=== PATIENT | female | born 1960 | race Asian ===

== ENCOUNTER 2024-08-09 08:04 | Outpatient (REF) | payer SELFPAY ==
--- OUTSIDE RECORDS SUMMARY | 2024-08-09 08:17 | XMS_ITS ---
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 Assessments Encounter Date Diagnosis (ICD Code) Assessment Notes Treatment Notes Treatment Clinical Notes Section Notes 06/27/2024 Neoplasm of uncertain behavior of appendix (ICD-10 - 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.3) Plan Of Treatment Pending Test Test Name Order Date CREATININE WITH GFRE 06/27/2024 BUN 06/27/2024 Next Appt Details Provider Name:Niharika Fofana, 0 08/29/2024 01:45:00 PM, [address] [place] [address], [phone], Provider Name:Reina Milton, 0 11/28/2024 09:30:00 AM, [address] [place] [address], [phone], Provider Name:Kathy Friedman, 11:00:00 AM, [address] [place] [address], [phone], Provider Name:Niharika Fofana, 1 04/16/2024 10:45:00 AM, [address] [place] [address], [id number], Progress Notes * DORY LAGUNADOB:1960 (64 yo F)Acc No.[id number]:06/27/2024 Patient:?DORY LAGUNA :1960???Age:63 Y???Sex:Female Address:[address] [place] [address] [address], [place], [address] Subjective: * Chief Complaints: * ???Need Labs * Medical History:? * Surgical History:? * Hospitalization/Major Diagno stic Procedure:? * Medications:? Objective: * Vitals:? * Physical Examination:? * ? Assessment: * Assessment: 1.?Neoplasm of uncertain beh avior of appendix - D37.3 (Primary)??? Plan: * Treatment: * Procedure Codes:? * * Date:?
--- OUTSIDE RECORDS SUMMARY | 2024-08-09 08:18 | XMS_ITS ---
Author Organization Q [facility] Address [address] [place], [place] [phone] Care Team Providers Care Racecourse Barrier Attendant Name Role Phone Niharika Fofana Primary Care Provider REASON FOR VISIT Telehealth visit 06/02/2024 Social History Sex Assigned At : Social History Observation Description Sex Assigned At Female Encounters Encounter Location Date Provider Diagnosis W [address] [phone] 06/02/2024 Niharika Fofana Plan Of Treatment Next Appt Details Provider Name:Niharika Fofana, 0 08/29/2024 01:45:00 PM, [address] [place] [address], [phone], Provider Name:Reina Milton, 0 11/28/2024 09:30:00 AM, [address] [place] [address], [phone], Provider Name:Kathy Friedman, 11:00:00 AM, [address] [place] [address], [phone], Provider Name:Niharika Fofana, 1 04/16/2024 10:45:00 AM, [address] [place] [address], [phone], Progress Notes * DORY LAGUNADOB:1960 (63 yo F)Acc No.[id number]:06/02/2024 Patient:?DORY LAGUNA :1960???Age:63 Y???Sex:Female Address:[address] [place] [address] [address], [place], [address] * true * Date:? Generated for Bernarda rg/Zulma/Chloéitting on:?08/09/2024 08:17 AM EDT
--- OUTSIDE RECORDS SUMMARY | 2024-08-09 08:18 | XMS_ITS ---
Author Organization Q [facility] Address [address] [place], [place] [id number] Care Team Providers Care Staff Nurse Name Role Phone Brigido Niharika Irene Primary Care Provider [phone] REASON FOR VISIT PHQ9 Depression Screening Social History Sex Assigned At : Social History Observation Description Sex Assigned At Female Encounters Encounter Location Date Provider Diagnosis [address] [phone] 07/04/2024 Niharika Fofana Plan Of Treatment Next Appt Details Provider Name:Niharika Fofana, 0 08/29/2024 01:45:00 PM, [address] [place] [address], [phone], Provider Name:Reina Milton, 0 11/28/2024 09:30:00 AM, [address] [place] [address], [phone], Provider Name:Kathy Friedman, 11:00:00 AM, [address] [place] [address], [phone], Provider Name:Niharika Fofana, 1 04/16/2024 10:45:00 AM, [address] [place] [address], [phone], Progress Notes * DORY LAGUNADOB:1960 (64 yo F)Acc No.[id number]:07/04/2024 Patient:?DORY LAGUNA :1960???Age:63 Y???Sex:Female Address:[address] [place] [address] [address], [place], [address] * * Date:? History and Physical Notes * HPI (History of Present Illness) Category Sub-Category Detail Notes Category Not es Depression Screening PHQ-9 Little inte rest or pleasure in doing things: Not at all, Feeling down,depressed or hopeless: Not at all, Trouble falling or staying asleep, or sleeping too much: Not at all, Feeling tired or having little energy: Not at all, Poor appetite or overeating: Not at all, Feeling bad about yourself or that you are a failure or have let yourself or your family down: Not at all, Trouble concentrating on things, such as reading the newspaper or watching television: Not at all, Moving or speaking so slowly that other people could have notice. Or the opposite of being so fidgety or restless that you have been moving around a lost more that usual: Not at all, Thoughts that you would be better off , or of hurting yourself in some way: Not at all, Total Score: 0
--- OUTSIDE RECORDS SUMMARY | 2024-08-09 08:18 | XMS_ITS | Patient Health Record ---
Author Organization Q [facility] [place], [facility] Address [address] [place] [phone] Care Team Providers Care Crop Or Grain Farmer Name Role Phone Niharika Fofana Primary Care Provider Kathy Friedman Unavailable [phone] Dr Reina Milton Unavailable [phone] Allergies No Known Allergies Results Component Value Reference Range Notes CBC Reviewed date:06/04/2024 02:36:59 PM Interpretation:see [facility] Performing Lab: Notes/Report: Copied To: , Ordering Provider: [place] [address] [facility] WBC 13.82 4.00-10.00 K/uL RBC 4.75 3.90-5.20 M/uL HEMOGLOBIN 14.9 11.2-15.7 g/dL HEMATOCRIT 42.8 34.0-45.0 % MCV 90 82-98 fL MCH 31.4 26.0-32.0 pg MCHC 34.8 32.0-37.0 g/dL RDW 11.8 10.5-15.5 % RDW-SD 38.7 35.1-46.3 fL PLATELET COUNT 257 150-400 K/uL NUCLEATED RBC 0 <=0 #/100 WBC Return To Vendor: AVELINO DUGAN Note See Below For Report LIPID PANEL Reviewed date:06/04/2024 02:36:59 PM Interpretation:. Performing Lab: Notes/Report: Copied To: , Ordering Provider: [place] [address] [facility] CHOLESTEROL 265 0-199 mg/dL TRIGLYCERIDES 176 0-149 mg/dL HDL CHOLESTEROL 64 41-999 mg/dL LDL CHOLESTEROL 166 0-129 mg/dL NON-HDL CHOLESTEROL 201 <190 mg/dL RATIO CHOL/HDL 4.1 2.0-5.0 Return To Vendor: AVELINO DUGAN Note See Below For Report TSH Reviewed date:06/04/2024 02:36:59 PM Interpretation: Performing Lab: Notes/Report: Copied To: , Ordering Provider: [place] [address] [address] [facility] TSH 0.98 0.27-4.20 uIU/mL Lab Directo r: AVELINO DUGAN Note See Below For Report VITAMIN D,25OH Reviewed date:06/04/2024 02:36:59 PM Interpretation: Performing Lab: Notes/Report: [facility] [address] [place] [address] Ordering Provider: VAN FOFANA Copied To: , VITAMIN D, 25-OH 44 30-60 ng/mL Lab Directo r: AVELINO DUGAN Note See Below For Report COMPREHENSIVE METABOLIC PANE L Reviewed date:06/04/2024 02:36:59 PM Interpretation:see [facility] Performing Lab: Notes/Report: Copied To: , Ordering Provider: [place] [address] [address] [facility] SODIUM 145 135-147 mmol/L POTASSIUM 3.7 3.5-5.4 mmol/L CHLORIDE 103 96-108 mmol/L TOTAL CO2 25 22-32 mmol/L ANION GAP (CALC) 17 10-18 mmol/L BUN 12 6-20 mg/dL CREATININE 0.60 0.40-1.10 mg/dL GLUCOSE 93 70-100 mg/dL CALCIUM 9.2 8.4-10.3 mg/dL TOTAL PROTEIN 7.7 6.4-8.3 g/dL ALBUMIN, BLOOD 4.7 3.5-5.2 g/dL GLOBULIN 3.0 2.0-4.0 g/dL AST (SGOT) 60 0-40 U/L ALT (SGPT) 93 0-40 U/L ALK PHOSPHATASE 81 35-105 U/L TOTAL BILIRUBIN 0.7 0.0-1.5 mg/dL ESTIMATED GFR (CKD-EPI) 100 Return To Vendor: AVELINO DUGAN Note See Below For Report CALCIUM Reviewed date:06/04/2024 02:36:43 PM Interpretation: Performing Lab: Notes/Report: [facility] [address] [place] [address] Ordering Provider: VAN FOFANA Copied To: , CALCIUM 9.2 8.4-10.3 mg/dL Return To Vendor: AVELINO DUGAN Note See Below For Report HEMOGLOBIN A1C Reviewed date:06/04/2024 02:36:59 PM Interpretation: Performing Lab: Notes/Report: Copied To: , Ordering Provider: VAN FOFANA [address] [facility] HEMOGLOBIN A1C 5.7 4.8-5.9 % A1C between 5 .7-6.4 if confirmed is considered prediabetes, and A1C >= 6.5 if confirmed is considered diabetes, according to the ADA. A1C treatment goals should be individualized. ESTIMATED AVERAGE GLUCOSE Es timated average glucose is calculated from A1C using ADAG equation. ESTIMATED AVERAGE GLUCOSE (INSTR. CALC) 117 68-126 mg/dL Return To Vendor: AVELINO DUGAN Note See Below For Report URINALYSIS, COMPLETE w/MICRO SCOPIC - URed2 Reviewed date:06/04/2024 02:36:59 PM Interpretation: Performing Lab: Notes/Report: ALBUMIN Reviewed date:06/04/2024 02:36:59 PM Interpretation: Performing Lab: Notes/Report: [facility] [address] [place] [address] Ordering Provider: VAN FOFANA Copied To: , ALBUMIN, BLOOD 4.7 3.5-5.2 g/dL Return To Vendor: AVELINO DUGAN Note See Below For Report URINALYSIS WITH SEDIMENT Reviewed date:06/04/2024 02:36:59 PM Interpretation:. Performing Lab: Notes/Report: [facility] [address] [place] [address] Ordering Provider: VAN FOAFNA Copied To: , COLOR, URINE Yellow Yellow, Colorles s, Straw CLARITY, URINE Cloudy Clear PH, URINE 6.0 5.0-8.0 PROTEIN UR 30 mg/dL Negative GLUCOSE UR 500 mg/dL Negative KETONE, UR Negative Negative BILIRUBIN UR Negative Negative UROBILINOGEN UR Normal 0.2-1.0 mg/dL BLOOD UR Negative Negative LEUKOCYTE UR Negative Negative NITRITE UR Negative Negative SPECIFIC GRAVITY UR 1.022 1.001-1.050 WBC, UR (NUMERIC) 0 0-5 /hpf RBC, UR (NUMERIC) 0 0-2 /hpf Lab Direct or: AVELINO DUGAN Note See Below For Report RAINBOW TUBE REQ Reviewed date:06/04/2024 02:36:59 PM Interpretation: Performing Lab: Notes/Report: Copied To: , Ordering Provider: [place] [address] [address] 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 Phone#: [phone]., Steph Rg 06/02/2024 02:44:03 PM >Per [facility], they would need to receive patient's records before schduling any appts. Once they receive the records, they will call patient directly to schedule this appt. Patient and her daughter will aware of the call from [facility]. Also provide the phone # to them in case they miss the calls. Referral Priority Urgent Medications Medication SIG (Take, Route, Frequency, Duration) Notes Start Date End Date Status AmLODIPine Besylate 2.5 mg 1 tab(s) orally once a day 05/08/2022 Active alendronate 70 mg 1 tab(s) orally once a week 11/20/2022 Active Patient report taking herbal medical Not-Taking meclizine 12.5 mg 1 tab(s) orally 1 hour before car ride 12/23/2021 Not-Taking Citracal Maximum + D 315 mg-6.25 mcg 1 tab orally 2 times a day 11/20/2022 Active Vitamin D3 25 mcg 1 cap(s) orally once a day 01/07/2022 Active Calcium from diet 1200mg from food daily 01/07/2022 Not-Taking Immunizations Vaccine Route Administration Date Status Comme nts Flucelvax Quad (Prsv Free) -P IM Intramuscular 12/23/2021 Administered Fluzone High-Dose, IIV3, pf Unknown 01/23/2024 Administered Covid19 Mrdn BIV 18+ (12+) Unknown 02/15/2022 Administe red Covid19 Moderna Booster Unknown 12/05/2021 Administered Hep A Unknown 12/23/2021 Administered Hep B Adult Unknown 12/23/2021 Administered MMR Unknown 07/18/2021 Administered PCV20 ([id number]) -P Unknown 02/15/2022 Administered PPD placed Unknown 05/08/2022 Administered Shingrix (NOT [facility]) Unknown 04/20/2022 Administered Sinovac Unknown 10/21/2020 Administered Sinovac Unknown 05/01/2021 Administered Sinovac Unknown 09/25/2021 Administered TdaP-P IM Intramuscular 04/24/2022 Administered Social History Tobacco Use: Social History Observation Description Date Details (start date - stop date) Never Smoker NA - NA Sex Assigned At : Social History Observation Description Sex Assigned At Female Tobacco use: Question Answer Notes do you smoke: nonsmoker Section Notes: 3[place]20[place] 3[place] 3[place] 3[place] 3[place]01/20[place] 3[place]/20[place] 3[place]/20[place] 3[place]/20[place] 3[place]01/20[place]01/20[place] 12[place]01/20[place] 12/01/2021 3[place]/01/20[place] 12/01/20[place]/01/20[place]/01/20[place] 12/01/2021 Problems Problem Type SNOMED Code ICD Code Onset Dates Problem Status W/U Status Risk Notes Problem Helicobacter pylori (44984486) Helicobacter pylori [H. 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) Active confirmed Problem Leukocytosis (078295661) Elevated white blood cell count, unspecified (D72.829) Active confirmed Problem Vitamin D deficiency (67386843) Vitamin D deficiency, unspecified (E55.9) Active confirmed Problem Hyperlipidemia (68066467) Hyperlipidemia , unspecified (E78.5) Active confirmed Problem Bilateral age-related cataract (6577051964692549 3) Combined forms of age-related cataract, bilateral (H25.813) Active confirmed Problem Presbyopia (29489565) Presbyopia (H52.4) Active confirmed Problem Essential hypertension (67198792) Essential (primary) hypertension (I10) Active confirmed Problem Atrophic Gastritis (Disorder) (01692303) 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1 73 -0.9 86 Osteopenia Left Hip / Femoral Neck 11/11/22 0.594 -2.3 70 -0.8 87 Osteopenia Problem Disorder of bone (78308593) Disorder of bone, unspecified (M89.9) Active confirmed Problem Menopause (843305872) Menopausal and female climacteric states (N95.1) Active confirmed Problem Elevated blood pressure reading without diagnosis of hypertension (379833782) Elevated blood-pressure reading, without diagnosis of hypertension (R03.0) Active confirmed Problem Right lower quadrant pain (748265573) Right lower quadrant pain (R10.31) Active confirmed Problem Frequency of micturition (233302125) Frequency of micturition (R35.0) Active confirmed Problem Solitary pulmonary nodule (189017485) Solitary pulmonary nodule (R91.1) Active confirmed Problem Motion sickness (31469669) Motion sickness, initial encounter (T75.3XXA) Active confirmed Problem Tuberculosis screening (502309890) Encounter for screening for respiratory tuberculosis (Z11.1) Active confirmed Problem Vaccination given (266575685) Encounter for immunization (Z23) Active confirmed Problem Repeated prescription (915678724) Encounter for issue of repeat prescription (Z76.0) Active confirmed Problem Elevation of levels of liver transaminase levels (R74.01) Active confirmed Vital Signs Heart Rate 65 /min 06/01/2024 Pt has not take n the anti-HTN medicine this morning. Temperature 97.3 degrees Fahrenheit 06/01/2024 Pt h as not taken the anti-HTN medicine this morning. Oximetry 98 06/01/2024 Pt has not take n the anti-HTN medicine this morning. Blood pressure diastolic 82 mm Hg 06/01/2024 Pt has not taken the anti-HTN medicine this morning. Height 61.81 in 06/01/2024 Pt has not take n the anti-HTN medicine this morning. Blood pressure systolic 133 mm Hg 06/01/2024 Pt h as not taken the anti-HTN medicine this morning. Weight 124.0 lbs 06/01/2024 Pt has not take n the anti-HTN medicine this morning. BMI 22.82 kg/m2 06/01/2024 Pt has not take n the anti-HTN medicine this morning. Encounters Encounter Location Date Provider Diagnosis [address] [id number] 01/21/2024 Niharika Fofana [address] [id number] 01/21/2024 Niharika Fofana [address] [id number] 01/21/2024 Niharika Fofana Age-related osteoporosis without current pathological fracture M81.0 ; Vitamin D deficiency, unspecified E55.9 and Essential (primary) hypertension I10 [address] [id number] 05/02/2024 Niharika Fofana [address] [id number] 06/01/2024 Niharika Fofana [address] [id number] 06/01/2024 Niharika Fofana [address] [id number] 06/01/2024 Niharika Fofana [address] [id number] 06/01/2024 Niharika Fofana [address] [id number] 06/01/2024 Niharika Fofana [address] [id number] 06/02/2024 Niharika Fofana [address] [id number] 06/02/2024 Niharika Fofana [address] [id number] 06/27/2024 Niharika Fofana Neoplasm of uncertai n behavior of appendix D37.[address] [id number] 07/04/2024 Niharika Fofana [address] [id number] 01/19/2024 Niharika Fofana Age-related osteoporosis without current pathological fracture M81.[address] [id number] 01/24/2024 Niharika Fofana [address] [id number] 06/01/2024 Niharika Fofana Encounter for genera l adult medical examination with abnormal findings Z00.01 ; Dietary counseling and surveillance Z71.3 ; Neoplasm of uncertain behavior of appendix D37.3 ; Age-related osteoporosis without current pathological fracture M81.0 ; Hyperlipidemia, unspecified E78.5 ; Vitamin D deficiency, unspecified E55.9 ; Essential (primary) hypertension I10 ; Encounter for immunization Z23 ; Encounter for issue of repeat prescription Z76.0 and Right lower quadrant pain R10.[address] [id number] 01/21/2024 Niharika Fofana Age-related osteoporosis without current pathological fracture M81.0 ; Hyperlipidemia, unspecified E78.5 ; Essential (primary) hypertension I10 ; Vitamin D deficiency, unspecified E55.9 ; Encounter for issue of repeat prescription Z76.0 and Encounter for immunization Z23 W [address] [id number] 06/02/2024 Niharika Fofana Right lower quadrant pain R10.31 ; Elevation of levels of liver transaminase levels R74.01 ; Elevated white blood cell count, unspecified D72.829 and Hyperlipidemia, unspecified E78.5 Assessments Encounter Date Diagnosis (ICD Code) Assessment Notes Treatment Notes Treatment Clinical Notes Section Notes 01/19/2024 Age-related osteoporosis without current pathological fracture (ICD-10 - M81.0) 01/21/2024 Age-related osteoporosis without current pathological fracture (ICD-10 - M81.0) [facility] BMD 11/11/2022 T-score MA Z-score AM Classification PA Spine / L1-L4 11/11/22 0.644 -3.7 62 -2.0 75 Osteoporosis Left Hip / Total 11/11/22 0.683 -2.1 73 -0.9 86 Osteopenia Left Hip / Femoral Neck 11/11/22 0.594 -2.3 70 -0.8 87 Osteopenia 01/21/2024 Age-related osteoporosis without current pathological fracture (ICD-10 - M81.0) 06/01/2024 Encounter for general adult medical examination with abnormal findings (ICD-10 - Z00.01) 06/02/2024 Right lower quadrant pain (ICD-10 - R10.31) elevated WBC in the setting after car ride with motion sickness and vomiting per Ms Renae , she has no abdomen pain today or urine discomfort Await CT appointment 06/27/2024 Neoplasm of uncertain behavior of appendix (ICD-10 - D37.3) 06/02/2024 Elevation of levels of liver transaminase levels (ICD-10 - R74.01) no alcohol or herbal medication Await GI appointment -- 06/01/2024 AST (SGOT)60 H0-40 (U/L) ALT (SGPT)93 H 06/01/2024 Dietary counseling and surveillance (ICD-10 - Z71.3) Healthy lifestyle discussed; 01/21/2024 Vitamin D deficiency, unspecified (ICD-10 - E55.9) 01/21/2024 Hyperlipidemia, unspecified (ICD-10 - E78.5) 01/21/2024 Essential (primary) hypertension (ICD-10 - I10) 01/21/2024 Essential (primary) hypertension (ICD-10 - I10) 06/01/2024 Neoplasm of uncertain behavior of appendix (ICD-10 - D37.3) [facility] 02/24/22 Appendix, ileum, right colon, ileocolectomy: Low-grade appendiceal mucinous neoplasm.[facility] 12/05/2022 CT 1. No evidence of metastatic disease in the chest, abdomen and pelvis.2. Hepatic steatosis.3. Known hemangiomas are poorly visualized on the current study.4. Stable sclerotic lesions 1 in the sacrum and 1 in the femoral head on theleft are likely representing bone islands. 06/02/2024 Elevated white blood cell count, unspecified (ICD-10 - D72.829) Discussed if has fever or persistent abdomen pain , need to go to ED 06/01/2024 WBC13.82 06/02/2024 Hyperlipidemia, unspecified (ICD-10 - E78.5) 06/01/2024 [id number] H0-199 (mg/dL) [id number] H0-149 (mg/dL) HDL [id number] 9 (mg/dL) LDL [id number] H0-129 (mg/dL) NON-HDL [id number] H<190 (mg/dL) RATIO CHOL/HDL4.12.0-5.0 -- Decrease fat in diet Will hold off lipid treatment till after GI evaluation 06/01/2024 Age-related osteoporosis without current pathological fracture (ICD-10 - M81.0) [facility] BMD 11/11/2022 T-score MA Z-score AM Classification PA Spine / L1-L4 11/11/22 0.644 -3.7 62 -2.0 75 Osteoporosis Left Hip / Total 11/11/22 0.683 -2.1 73 -0.9 86 Osteopenia Left Hip / Femoral Neck 11/11/22 0.594 -2.3 70 -0.8 87 Osteopenia 01/21/2024 Vitamin D deficiency, unspecified (ICD-10 - E55.9) 01/21/2024 Encounter for issue of repeat prescription (ICD-10 - Z76.0) 01/21/2024 escripted 1 year Rx to [facility], [address] [place] [address], [place] [address] , Tel: [phone] Fax: [phone] 06/01/2024 Hyperlipidemia, unspecified (ICD-10 - E78.5) 06/01/2024 Vitamin D deficiency, unspecified (ICD-10 - E55.9) 01/21/2024 Encounter for immunization (ICD-10 - Z23) recommend flu vaccine and covid 19 vaccine 06/01/2024 Essential (primary) hypertension (ICD-10 - I10) 06/01/2024 Encounter for immunization (ICD-10 - Z23) 06/01/2024 Encounter for issue of repeat prescription (ICD-10 - Z76.0) 06/01/2024 Right lower quadrant pain (ICD-10 - R10.31) 06/01/2024 Other Medication list reconciled. Copy of the medical summary given to patient. Age appropriated cancer screening discuss with the pt, the pt expresses understanding. Plan Of Treatment Pending Test Test Name Order Date Bone density 06/01/2024 Bone density 05/08/2022 Bone density 01/21/2024 Bone scan 02/01/2022 Fecal occult blood test - in house 06/01 Fecal occult blood test - in house 12/23 CT Scan : Abd & Pelvis with IV and oral contrast 01/07/2022 Chest X-ray PA and lateral 12/23/2021 Chest X-ray PA and lateral 12/24/2021 QUANTIFERON(R)-TB GOLD - CALL 12/23/2021 CT Scan : Chest w/o Contrast 02/01/2022 MRI : Pelvis with and without contrast 0 06/10/2022 CT ABDOMEN AND PELVIS W WO CONTRAST 05/14 CREATININE WITH GFRE 06/27/2024 BUN 06/27/2024 Next Appt Details Provider Name:Niharika Fofana, 0 08/29/2024 01:45:00 PM, [address] [place] [address], [phone], Provider Name:Reina Milton, 0 11/28/2024 09:30:00 AM, [address] [place] [address], [phone], Provider Name:Kathy Garcia Idalia, 11:00:00 AM, [address] [place] [address], [phone], Provider Name:Niharika Fofana, 1 04/16/2024 10:45:00 AM, [address] [place] [address], [phone], Insurance Providers Payer Name Payer Address Payer Phone Subscriber Number Group Number Insured Name Patient Relationship to Insured Coverage Start Date Coverage End Date [facility] [address] [place] [address] [phone] [id number] type 1 DORY RENAE Self - patient is the insured 2 [employer] [address] [place] [address] [id number] DORY RENAE Self - patient is the insured 3 Medical (General) History Medical History History ICD Code 10/18/2021 CT and US found 13 mm x 5 mm appendix lesion --> s/p laparotomy by [facility] (see surg hx) Hyperlipidemia H/O fatty liver Age-related osteoporosis Vitamin D deficiency 12/23/2021 Vitamin D 25 level 18* Menopause age 46 Fibroid 06/10/2022 [facility] 06/03/2022 M RI SACRUM/SI JOINTS W/W/O CONTRAST 09/05/22 Orthopedic [facility] 05/08/2022 T spot negative Surgical History Surgery Date(Month/Year) [facility] 02/24/22 Appendix, ile um, right colon, ileocolectomy: Low-grade appendiceal mucinous neoplasm. [facility] colonoscopy 06/20/2022 Hospitalization History Reason Date(Month/Year) [facility] 02/24/22 open ileocolectomy Discha rge Date: 02/26/22
[2024-08-09 10:08] LABS: Blood Urea Nitrogen 12 mg/dL (9-16); Estimated Glomerular Filt Rate > 60
== END 2024-08-09 08:05 | disposition home or self-care (01) ==
LOC: HO.LAB 08:04
PROVIDERS: PCP Internal Medicine Geriatric Medicine; Visit Provider Internal Medicine Geriatric Medicine
DX: D37.3 Neoplasm of uncertain behavior of appendix (principal)
CPT/HCPCS: 36415; 82565; 84520

== ENCOUNTER 2024-08-15 13:24 | Outpatient (REF) | payer MEDICAID, SELFPAY ==
--- NOTE | ~2024-08-15 | CT_ITS ---
CLINICAL HISTORY: RLQ pain Exam: CT abdomen and pelvis with intravenous contrast. Comparison: None. Findings: CT abdomen: Minor linear scarring or atelectasis within the lingula abutting the fissure. Lung bases otherwise clear. No focal bony lesions. Degenerative change of the lumbosacral junction. Low-attenuation throughout the liver is indicative of fatty infiltration. There is a 6 mm cyst within the periphery of the right lobe of the liver. No other liver lesions identified. Main portal vein is patent. Spleen, pancreas, gallbladder, adrenal glands, and kidneys are unremarkable for acute findings. Tiny cortical cysts are seen within both kidneys. Hyperdense contrast material seen within the stomach. There are filling defects seen within the distal gastric body suggesting ingested contents. These are seen within the lumen of the stomach and not along the gastric wall. Food debris is also seen within the proximal duodenal. High-density contrast material extends throughout the majority of the small bowel. No free spill of contrast material. No dilated small bowel. CT pelvis: Gobx-sf-athmmquh stool throughout the colon. No colonic wall thickening or pericolonic inflammatory stranding. Stool is intermixed with soft tissue density within the cecum, likely related to admixture of liquid and solid stool. Appendix is surgically absent. There is fecalization of the distal ileum. No free fluid or free air. Urinary bladder is moderately distended. Impression: Fecalization of the distal ileum may account for the patient's right lower quadrant abdominal pain. This can be seen with chronic constipation. Clinical correlation advised. Correlation with the patient's colon cancer screening is also suggested given the findings in the cecum of presumed admixture of liquid and solid stool. This document has been electronically signed by: Paco Figueroa MD on 08/17/2024 09:59:04
--- OUTSIDE RECORDS SUMMARY | 2024-08-15 14:52 | XMS_ITS ---
Author Organization Q [facility] Address [address], [place] [id number] Care Team Providers Care Fitness Professional Name Role Phone Niharika Fofana Primary Care Provider REASON FOR VISIT Telehealth visit 06/02/2024 Social History Sex Assigned At : Social History Observation Description Sex Assigned At Female Encounters Encounter Location Date Provider Diagnosis W [address] [id number] 06/02/2024 Niharika Fofana Plan Of Treatment Next Appt Details Provider Name:Niharika Fofana, 0 08/29/2024 01:45:00 PM, [address] [place] [address], [phone], Provider Name:Reina Milton, 0 11/28/2024 09:30:00 AM, [address] [place] [address], [phone], Provider Name:Kathy Friedman, 11:00:00 AM, [address] [place] [address], [phone], Provider Name:Niharika Fofana, 1 04/16/2024 10:45:00 AM, [address] [place] [address], [phone], Progress Notes * DORY LAGUNADOB:1960 (63 yo F)Acc No.[id number]:06/02/2024 Patient:?DORY LAGUNA :1960???Age:63 Y???Sex:Female Address:[address] [place] [address] [address], [place], [address] * true * Date:? Generated for Bernarda rg/Zulma/Chloéitting on:?08/15/2024 02:52 PM EDT
--- OUTSIDE RECORDS SUMMARY | 2024-08-15 14:52 | XMS_ITS ---
Author Organization Q [facility] [place] Address [address], [place] [id number] Care Team Providers Care Loading Machine Tool Setter Name Role Phone Brigido Niharika Irene Primary Care Provider REASON FOR VISIT Need Labs Social History Sex Assigned At : Social History Observation Description Sex Assigned At Female Encounters Encounter Location Date Provider Diagnosis [address] [id number] 06/27/2024 Niharika Fofana Neoplasm of uncertain behavior of appendix D37.3 Assessments Encounter Date Diagnosis (ICD Code) Assessment Notes Treatment Notes Treatment Clinical Notes Section Notes 06/27/2024 Neoplasm of uncertain behavior of appendix (ICD-10 - D37.3) Plan Of Treatment Pending Test Test Name Order Date CREATININE WITH GFRE 06/27/2024 BUN 06/27/2024 Next Appt Details Provider Name:Niharika Fofana, 0 08/29/2024 01:45:00 PM, [address] [place] [address], [phone], Provider Name:Reina Milton, 0 11/28/2024 09:30:00 AM, [address] [place] [address], [phone], Provider Name:Kathy Friedman, 11:00:00 AM, [address] [place] [address], [phone], Provider Name:Niharika Fofana, 1 04/16/2024 10:45:00 AM, [address] [place] [address], [phone], Progress Notes * DORY LAGUNADOB:1960 (64 yo F)Acc No.[id number]:06/27/2024 Patient:?DORY LAGUNA :1960???Age:63 Y???Sex:Female Address:[address] [place] [address] [address], [place], [address] Subjective: * Chief Complaints: * ???Need Labs * Medical History:? * Surgical History:? * Hospitalization/Major Diagno stic Procedure:? * Medications:? Objective: * Vitals:? * Physical Examination:? * ? Assessment: * Assessment: 1.?Neoplasm of uncertain beh avior of appendix - D37.3 (Primary)??? Plan: * Treatment: * Procedure Codes:? * * Date:?
--- OUTSIDE RECORDS SUMMARY | 2024-08-15 14:53 | XMS_ITS ---
Author Organization [facility] Address [address] [place], [place] [id number] Care Team Providers Care Driver Wheelchair Name Role Phone Brigido Niharika Irene Primary Care Provider [phone] REASON FOR VISIT PHQ9 Depression Screening Social History Sex Assigned At : Social History Observation Description Sex Assigned At Female Encounters Encounter Location Date Provider Diagnosis S [address] [id number] 07/04/2024 Niharika Fofana Plan Of Treatment Next Appt Details Provider Name:Niharika Fofana, 0 08/29/2024 01:45:00 PM, [address] [place] [address], [phone], Provider Name:Reina Milton, 0 11/28/2024 09:30:00 AM, [address] [place] [address], [phone], Provider Name:Kathy Friedman, 11:00:00 AM, [address] [place] [address], [phone], Provider Name:Niharika Fofana, 1 04/16/2024 10:45:00 AM, [address] [place] [address], [phone], Progress Notes * DORY LAGUNADOB:1960 (64 yo F)Acc No.[id number]:07/04/2024 Patient:?DORY LAGUNA :1960???Age:63 Y???Sex:Female Address:[address] [place] [address] [address], [place], [address] * * Date:? History and Physical Notes [...]
--- OUTSIDE RECORDS SUMMARY | 2024-08-15 14:53 | XMS_ITS | Patient Health Record ---
Author Organization [facility] [place] Address [address] [place], [place] [id number] Care Team Providers Care Drafter Detail Name Role Phone Niharika Fofana Primary Care Provider [phone] Kathy Friedman Unavailable [phone] Dr Reina Milton Unavailable [phone] Allergies No Known Allergies Results Component Value Reference Range Notes VITAMIN D,25OH Reviewed date:06/04/2024 02:36:59 PM Interpretation: Performing Lab: Notes/Report: Copied To: , Ordering Provider: [place] [address] [facility] VITAMIN D, 25-OH 44 30-60 ng/mL Lab Directo r: AVELINO DUGAN Note See Below For Report COMPREHENSIVE METABOLIC PANE L Reviewed date:06/04/2024 02:36:59 PM Interpretation:see [facility] Performing Lab: Notes/Report: Copied To: , Ordering Provider: [place] [address] [facility] SODIUM 145 135-147 mmol/L [...] 0.7 0.0-1.5 mg/dL ESTIMATED GFR (CKD-EPI) 100 Reservations And Ticketing Agent: AVELINO DUGAN Note See Below For Report CBC Reviewed date:06/04/2024 02:36:59 PM Interpretation:see [facility] Performing Lab: Notes/Report: Copied To: , Ordering Provider: VAN FOFANA [address] [facility] WBC 13.82 4.00-10.00 K/uL RBC 4.75 3.90-5.20 M/uL HEMOGLOBIN 14.9 11.2-15.7 g/dL HEMATOCRIT 42.8 34.0-45.0 % MCV 90 82-98 fL MCH 31.4 26.0-32.0 pg MCHC 34.8 32.0-37.0 g/dL RDW 11.8 10.5-15.5 % RDW-SD 38.7 35.1-46.3 fL PLATELET COUNT 257 150-400 K/uL NUCLEATED RBC 0 <=0 #/100 WBC Reservations And Ticketing Agent: AVELINO DUGAN Note See Below For Report CALCIUM Reviewed date:06/04/2024 02:36:43 PM Interpretation: Performing Lab: Notes/Report: [facility] [address] [place] [address] Ordering Provider: VAN FOFANA Copied To: , CALCIUM 9.2 8.4-10.3 mg/dL Reservations And Ticketing Agent: AVELINO DUGAN Note See Below For Report ALBUMIN Reviewed date:06/04/2024 02:36:59 PM Interpretation: Performing Lab: Notes/Report: [facility] [address] [place] [address] Ordering Provider: VAN FOFANA Copied To: , ALBUMIN, BLOOD 4.7 3.5-5.2 g/dL Reservations And Ticketing Agent: AVELINO DUGAN Note See Below For Report URINALYSIS, COMPLETE w/MICRO SCOPIC - URed2 Reviewed date:06/04/2024 02:36:59 PM Interpretation: Performing Lab: Notes/Report: LIPID PANEL Reviewed date:06/04/2024 02:36:59 PM Interpretation:. Performing Lab: Notes/Report: [facility] [address] [place] [address] Ordering Provider: VAN FOFANA Copied To: , CHOLESTEROL 265 0-199 mg/dL TRIGLYCERIDES 176 0-149 mg/dL HDL CHOLESTEROL 64 41-999 mg/dL LDL CHOLESTEROL 166 0-129 mg/dL NON-HDL CHOLESTEROL 201 <190 mg/dL RATIO CHOL/HDL 4.1 2.0-5.0 Reservations And Ticketing Agent: AVELINO DUGAN Note See Below For Report HEMOGLOBIN A1C Reviewed date:06/04/2024 02:36:59 PM Interpretation: Performing Lab: Notes/Report: Copied To: , Ordering Provider: [place] [address] [facility] HEMOGLOBIN A1C 5.7 4.8-5.9 % A1C between 5 .7-6.4 if confirmed is considered prediabetes, and A1C >= 6.5 if confirmed is considered diabetes, according to the ADA. A1C treatment goals should be individualized. ESTIMATED AVERAGE GLUCOSE Es timated average glucose is calculated from A1C using ADAG equation. ESTIMATED AVERAGE GLUCOSE (INSTR. CALC) 117 68-126 mg/dL Reservations And Ticketing Agent: AVELINO DUGAN Note See Below For Report TSH Reviewed date:06/04/2024 02:36:59 PM Interpretation: Performing Lab: Notes/Report: Copied To: , Ordering Provider: [place] [address] [facility] TSH 0.98 0.27-4.20 uIU/mL Lab Directo r: AVELINO DUGAN Note See Below For Report RAINBOW TUBE REQ Reviewed date:06/04/2024 02:36:59 PM Interpretation: Performing Lab: Notes/Report: Copied To: , Ordering Provider: [place] [address] [facility] EXTRA TUBE Received Reservations And Ticketing Agent: Jose DUGAN Note See Below For Report URINALYSIS WITH SEDIMENT Reviewed date:06/04/2024 02:36:59 PM Interpretation:. Performing Lab: Notes/Report: [facility] [address] 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 Phone#: [phone]., Steph Rg 06/02/2024 02:44:03 PM >Per [facility], they would need to receive patient's records before schduling any appts. Once they receive the records, they will call patient directly to schedule this appt. Patient and her daughter will aware of the call from [facility]. Also provide the phone # to [...] Vaccine Route Administration Date Status Comme nts Covid19 Moderna Booster Unknown 12/05/2021 Administered Covid19 Mrdn BIV 18+ (12+) Unknown 02/15/2022 Administe red Flucelvax Quad (Prsv Free) -P IM Intramuscular 12/23/2021 Administered Fluzone High-Dose, IIV3, pf Unknown 01/23/2024 Administered Hep A Unknown 12/23/2021 Administered Hep B Adult Unknown 12/23/2021 Administered MMR Unknown 07/18/2021 Administered PCV20 ([id number]) -P Unknown 02/15/2022 Administered PPD placed Unknown [...] Notes do you smoke: nonsmoker Section Notes: [place] from [place] on 12/01/2021 [place] 12/01/2021 3[place]/20[place] 3[place]01/2021 3[place] 12/01/2021 3[place] 12[place]01/2021 3[place] 12/01/2021 3[place] 12[place]01/2021 3[place] 12/01/2021 3[place] 12/01/20[place] 12/01/2021 3[place] 12/01/2021 [place] 12/01/2021 3[place] 12/01/2021 [place] 12/01/2021 [place] 12/01/20[place] on 12/01/2021 Problems Problem Type SNOMED Code ICD Code Onset Dates Problem Status W/U Status Risk Notes Problem Helicobacter pylori (12469896) Helicobacter pylori [H. 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) Active confirmed Problem Leukocytosis (710686917) Elevated white blood cell count, unspecified (D72.829) Active confirmed Problem Vitamin D deficiency (05338956) Vitamin D deficiency, unspecified (E55.9) Active confirmed Problem Hyperlipidemia (02247809) Hyperlipidemia , unspecified (E78.5) Active confirmed Problem Bilateral age-related cataract (7406879842707296 3) Combined forms of age-related cataract, bilateral (H25.813) Active confirmed Problem Presbyopia (41066809) Presbyopia (H52.4) Active confirmed Problem Essential hypertension (14463067) Essential (primary) hypertension (I10) Active confirmed Problem Atrophic Gastritis (Disorder) (69527693) Chronic atrophic gastritis without bleeding (K29.40) Active confirmed Problem Liver disease (474507281) Liver disease, unspecified (K76.9) Active confirmed Problem Dermatitis (775249006) Dermatitis, unspecified (L30.9) Active confirmed Problem Enthesopathy of hip region (07034974) Gluteal tendinitis, unspecified hip (M76.00) Active confirmed Problem Age-related osteoporosis (075862729) Age-related osteoporosis without current pathological fracture (M81.0) Active confirmed [facility] BMD 11/11/2022 T-score [place] Z-score AM Classificati on PA Spine / L1-L4 11/11/22 0.644 -3.7 62 -2.0 75 Osteoporosis Left Hip / Total 11/11/22 0.683 -2.1 73 -0.9 86 Osteopenia Left Hip / Femoral Neck 11/11/22 0.594 -2.3 70 -0.8 87 Osteopenia Problem Disorder of bone (50865936) Disorder of bone, unspecified (M89.9) Active confirmed Problem Menopause (108787297) Menopausal and female climacteric states (N95.1) Active confirmed Problem Elevated blood pressure reading without diagnosis of hypertension (244257896) Elevated blood-pressure reading, without diagnosis of hypertension (R03.0) Active confirmed Problem Right lower quadrant pain (012411972) Right lower quadrant pain (R10.31) Active confirmed Problem Frequency of micturition (021379607) Frequency of micturition (R35.0) Active confirmed Problem Solitary pulmonary nodule (130755709) Solitary pulmonary nodule (R91.1) Active confirmed Problem Motion sickness (72547865) Motion sickness, initial encounter (T75.3XXA) Active confirmed Problem Tuberculosis screening (046551589) Encounter for screening for respiratory tuberculosis (Z11.1) Active confirmed Problem Vaccination given (652827395) Encounter for immunization (Z23) Active confirmed Problem Repeated prescription (442866308) Encounter for issue of repeat prescription (Z76.0) [...] Encounters Encounter Location Date Provider Diagnosis [address] [id number] 01/21/2024 Niharika Fofana [address] [id number] 01/21/2024 Niharika Fofana [address] [id number] 01/21/2024 Niharika Fofana Age-related osteoporosis without current pathological fracture M81.0 ; Vitamin D deficiency, unspecified E55.9 and Essential (primary) hypertension I10 [address] [id number] 05/02/2024 Niharika Fofana [address] [id number] 06/01/2024 Niharika Fofana [address] [id number] 06/01/2024 Niharika Fofana [address] [id number] 06/01/2024 Niharika Fofana [address] [id number] 06/01/2024 Niharika Fofana [address] [id number] 06/01/2024 Niharika Fofana [address] [id number] 06/02/2024 Niharika Fofana [address] [id number] 06/02/2024 Niharika Fofana [address] [id number] 06/27/2024 Niharika Fofana Neoplasm of uncertai n behavior of appendix D37.[address] [id number] 07/04/2024 Niharika Fofana [address] [id number] 01/19/2024 Niharika Fofana Age-related osteoporosis without current pathological fracture M81.[address] [id number] 01/24/2024 Niharika Fofana [address] [id number] 06/01/2024 Niharika Fofana Encounter for genera l [...] and Right lower quadrant pain R10.[address] [id number] 01/21/2024 Niharika Fofana Age-related osteoporosis without current pathological fracture M81.0 ; Hyperlipidemia, unspecified E78.5 ; Essential (primary) hypertension I10 ; Vitamin D deficiency, unspecified E55.9 ; Encounter for issue of repeat prescription Z76.0 and Encounter for immunization Z23 [address] [id number] 06/02/2024 Niharika Fofana Right lower quadrant pain [...] without current pathological fracture (ICD-10 - M81.0) [facility] BMD 11/11/2022 T-score [place] Z-score AM Classification PA Spine / L1-L4 [...] uncertain behavior of appendix (ICD-10 - D37.3) [facility] 02/24/22 Appendix, ileum, right colon, ileocolectomy: Low-grade appendiceal mucinous neoplasm.[facility] 12/05/2022 CT 1. No evidence of metastatic [...] 06/02/2024 Hyperlipidemia, unspecified (ICD-10 - E78.5) 06/01/2024 [id number] H0-199 (mg/dL) [id number] H0-149 (mg/dL) HDL [id number] 9 (mg/dL) LDL [id number] H0-129 (mg/dL) NON-HDL [id number] H<190 (mg/dL) RATIO CHOL/HDL4.12.0-5.0 -- Decrease fat in diet Will hold off lipid treatment till after GI evaluation 06/01/2024 Age-related osteoporosis without current pathological fracture (ICD-10 - M81.0) [facility] BMD 11/11/2022 T-score [place] Z-score AM Classification PA Spine / L1-L4 11/11/22 0.644 -3.7 62 -2.0 75 Osteoporosis Left Hip / Total 11/11/22 0.683 -2.1 73 -0.9 86 Osteopenia Left Hip / Femoral Neck 11/11/22 0.594 -2.3 70 -0.8 87 Osteopenia 01/21/2024 Vitamin D deficiency, unspecified (ICD-10 - E55.9) 01/21/2024 Encounter for issue of repeat prescription (ICD-10 - Z76.0) 01/21/2024 escripted 1 year Rx to [facility], [address] [place] [address], [place] [address] , Tel: [phone] Fax: [phone] 06/01/2024 Hyperlipidemia, unspecified (ICD-10 - E78.5) 06/01/2024 [...] Test Test Name Order Date Bone density 05/08/2022 Bone density 01/21/2024 Bone density 06/01/2024 Bone scan 02/01/2022 Fecal occult blood test - in house 12/23 Fecal occult blood test - in house 06/01 CT Scan : Abd & Pelvis with [...] Provider Name:Niharika Fofana, 0 08/29/2024 01:45:00 PM, [address] [place] [address], [phone], Provider Name:Reina Milton, 0 11/28/2024 09:30:00 AM, [address] [place] [address], [phone], Provider Name:Kathy Garcia Idalia, 11:00:00 AM, [address] [place] [address], [phone], Provider Name:Niharika Fofana, 1 04/16/2024 10:45:00 AM, [address] [place] [address], [phone], Insurance Providers Payer Name Payer Address Payer Phone Subscriber Number Group Number Insured Name Patient Relationship to Insured Coverage Start Date Coverage End Date [facility] [address] [place] [address] [phone] [id number] type 1 DORY RENAE Self - patient is the insured 2 [employer] [address] [place] [address] [id number] DORY RENAE Self - patient is the insured 3 Medical (General) History Medical History History ICD Code 10/18/2021 CT and US found 13 mm x 5 mm appendix lesion --> s/p laparotomy by [facility] (see surg hx) Hyperlipidemia H/O fatty liver Age-related osteoporosis Vitamin D deficiency 12/23/2021 Vitamin D 25 level 18* Menopause age 46 Fibroid 06/10/2022 [facility] 06/03/2022 M RI SACRUM/SI JOINTS W/W/O CONTRAST 09/05/22 Orthopedic [facility] 05/08/2022 T spot negative Surgical History Surgery Date(Month/Year) [facility] 02/24/22 Appendix, ile um, right colon, ileocolectomy: Low-grade appendiceal mucinous neoplasm. [facility] colonoscopy 06/20/2022 Hospitalization History Reason Date(Month/Year) [facility] 02/24/22 open ileocolectomy Discha rge Date: 02/26/22
[2024-08-15] MEDS: iohexoL 350 MG/ML 75 ML INFUS..BTL 85 ML IV (17:11)
[2024-08-15] MEDS: Barium Sulfate Oral (Vanilla) 450 ML ORAL.SUSP 900 ML PO (17:12)
== END 2024-08-15 13:25 | disposition home or self-care (01) ==
LOC: HO.CT 13:24
PROVIDERS: Visit Provider Internal Medicine Geriatric Medicine
DX: R10.31 Right lower quadrant pain (principal)
CPT/HCPCS: 74177; Q9967

== ENCOUNTER → 2024-08-15 15:42 | Outpatient (BNV) | payer MEDICAID, SELFPAY | PROVIDERS: Visit Provider Radiology Diagnostic Radiology | DX: R10.31 Right lower quadrant pain (principal) | CPT/HCPCS: 74177 ==

== ENCOUNTER 2024-11-03 12:32 | Outpatient (AMB) | payer MEDICAID, SELFPAY ==
--- OUTSIDE RECORDS SUMMARY | 2024-06-27 06:48 | XMS_ITS ---
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 Assessments Encounter Date Diagnosis (ICD Code) Assessment Notes Treatment Notes Treatment Clinical Notes Section Notes 06/27/2024 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
--- NOTE | 2024-11-03 12:33 | A.OFFVIS_ITS ---
Vital Signs 11/03/24 12:44 Height 5 ft 1.02 in Weight 110 lb BMI 20.8 BP 138/66 Blood Pressure Location Rt brachial Position Sitting Pulse 68 Pulse Source Pulse Oximeter Pulse Oximetry (%) 98 Oxygen Delivery Method Room Air Intake Visit Reasons: RLQ abdominal pain Intake Note: New pt for initial eval of RLQ pain. CC: Pt denies any GI sx or concerns at this time. States that they had onset of abd pain x3 mos ago but has not had the pain for approximately the last 2 mos. Hx of CIC, currently controlled. Oral And Maxillofacial Surgeon Required: Yes Oral And Maxillofacial Surgeon Services: Oral And Maxillofacial Surgeon Offered & Declined Accompanied by: Family/Other Allergies No Known Allergies Allergy (Verified 11/03/24 12:34) HPI HPI RLQ abdominal pain: Details: 64-year-old female here for preprocedural meeting to discuss a screening colonoscopy. She is referred by an internal medicine doctor in [place]. PMX High cholesterol Hypertension Fatty liver Osteoporosis Uterine fibroids * SURGICAL HISTORY Right colon ileocolectomy ? Biopsy of the appendiceal lesion Colonoscopy 06/2022 * ALLERGIES: NKDA * [employer] LABS: None CT ABDOMEN AND PELVIS 08/17/24 Findings: CT abdomen: Minor linear scarring or atelectasis within the lingula abutting the fissure. Lung bases otherwise clear. No focal bony lesions. Degenerative change of the lumbosacral junction. Low-attenuation throughout the liver is indicative of fatty infiltration. There is a 6 mm cyst within the periphery of the right lobe of the liver. No other liver lesions identified. Main portal vein is patent. Spleen, pancreas, gallbladder, adrenal glands, and kidneys are unremarkable for acute findings. Tiny cortical cysts are seen within both kidneys. Hyperdense contrast material seen within the stomach. There are filling defects seen within the distal gastric body suggesting ingested contents. These are seen within the lumen of the stomach and not along the gastric wall. Food debris is also seen within the proximal duodenal. High-density contrast material extends throughout the majority of the small bowel. No free spill of contrast material. No dilated small bowel. CT pelvis: Gddl-fi-hedljmow stool throughout the colon. No colonic wall thickening or pericolonic inflammatory stranding. Stool is intermixed with soft tissue density within the cecum, likely related to admixture of liquid and solid stool. Appendix is surgically absent. There is fecalization of the distal ileum. No free fluid or free air. Urinary bladder is moderately distended. Impression: Fecalization of the distal ileum may account for the patient's right lower quadrant abdominal pain. This can be seen with chronic constipation. Clinical correlation advised. Correlation with the patient's colon cancer screening is also suggested given the findings in the cecum of presumed admixture of liquid and solid stool. TODAY'S VISIT [place] #Male family member translates per patient request She was referred here for right lower quadrant abdominal pain which was precipitated by lifting but this has since resolved. HER ONLY OTHER GI concern is constipation which is currently well managed with Colace. She has a history of a appendiceal lesion that was removed in [place] so it is possible there some scar tissue in this area. She has had absolutely no recurrent pain since she stopped trying to carry the baby (they say this is the lifting the precipitated the pain) and she does not have any pain when she moves her bowels are when she eats. Her weight has been stable and she has no other pressing health concerns. Her primary care provider is in [place] because they are unsure whether or not they will be moving to this area. At this point they really have no need of a senior gis analyst. I do review the CAT scan that was ordered by their primary which does not show any concerning pathologies. Return office visit p.r.n. [facility] Medical History (Updated 11/03/24 @ 12:46 by Owen Sy [facility]) Chronic idiopathic constipation Surgical History H/O colonoscopy S/P partial colectomy Review of Systems Const Denies fatigue, Denies malaise, Denies poor appetite, Denies weakness, Denies weight gain and Denies weight loss ENT Denies dysphagia GI Denies abdominal pain, Denies hematochezia, Denies change in bowel habits, Reports constipation, Denies dysphagia, Denies dyspepsia and Denies heartburn Neuro Denies weakness Endo Denies fatigue Physical Exam Const General: cooperative, healthy appearing and comfortable Nutritional Appearance: average body habitus Orientation/consciousness: oriented to person, oriented to place and oriented to time Resp Effort & Inspection: normal respiratory effort and able to speak in complete sentences Neuro General: oriented to person, oriented to place and oriented to time Psych Appearance: grossly normal and well kempt Mental Status: mental status grossly normal Speech and movement: Normal speech and movement present Affect: normal affect Attitude: cooperative Thought process: Normal thought process present Thought content: Normal thought content present Insight: Fair insight present (Psych) Judgement: Fair judgement present (Psych) Results Reviewed Results Reviewed: CT ABOVE Assessment & Plan Assessment & Plan (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 HER ONLY OTHER GI concern is constipation which is currently well managed with Colace. She has a history of a appendiceal lesion that was removed in [place] so it is possible there some scar tissue in this area. She has had absolutely no recurrent pain since she stopped trying to carry the baby (they say this is the lifting the precipitated the pain) and she does not have any pain when she moves her bowels are when she eats. Her weight has been stable and she has no other pressing health concerns. Her primary care provider is in [place] because they are unsure whether or not they will be moving to this area. At this point they really have no need of a senior gis analyst. I do review the CAT scan that was ordered by their primary which does not show any concerning pathologies. She does seem to have mild fatty liver but is not obese, does not drink alcohol and does not have diabetes so this likely is not any threat to her long-term health. This can continue to be monitored by her primary care provider. Return office visit p.r.n. 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
[2024-11-03 12:44] VITALS: BP 138/66; PULSE 68; O2SAT 98; BMI 20.8
== END 2024-11-03 12:52 | disposition home or self-care (01) ==
PROVIDERS: Visit Provider Nurse Practitioner
DX: D12.1 Benign neoplasm of appendix (principal)
CPT/HCPCS: 99203

== ENCOUNTER → 2024-11-03 12:32 | Outpatient (BNVA) | payer MEDICAID, SELFPAY | PROVIDERS: Visit Provider Nurse Practitioner | DX: D12.1 Benign neoplasm of appendix (principal) | CPT/HCPCS: 99212 ==

== ENCOUNTER 2025-03-15 12:38 | Outpatient (REF) | payer SELFPAY ==
--- OUTSIDE RECORDS SUMMARY | 2024-06-27 05:48 | XMS_ITS ---
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 Assessments Encounter Date Diagnosis (ICD Code) Assessment Notes Treatment Notes Treatment Clinical Notes Section Notes 06/27/2024 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
--- OUTSIDE RECORDS SUMMARY | 2024-08-29 11:30 | XMS_ITS ---
Author Organization [facility] Address [address], [place] [id number] Care Team Providers Care Manifest/Order Organizer Print Orders Name Role Phone Niharika Fofana Primary Care Provider Allergies No Known Allergies REASON FOR VISIT CPT [id number], 64 YO AF S/P CT ABD/Pelvis @[place] 08/15/2024 Medications Medication SIG (Take, Route, Frequency, Duration) Notes Start Date End Date Status Dulcolax Laxative 10 mg suppository 1 SUPP(s) rectally every 2-3 days 08/29/2024 Active Citracal Maximum + D 315 mg-6.25 mcg tablet 1 tab orally 2 times a day 11/20/2022 Active Calcium from diet 1200mg from food daily 01/07/2022 Not-Taking Colace sodium 100 mg capsule 1 cap(s) orally 2 times a day 08/29/2024 Active meclizine 12.5 mg tablet 1 tab(s) orally 1 hour before car ride 12/23/2021 Not-Taking AmLODIPine Besylate 2.5 mg tablet 1 tab(s) orally once a day 05/08/2022 Active alendronate 70 mg tablet 1 tab(s) orally once a week 11/20/2022 Active Vitamin D3 25 mcg capsule 1 cap(s) orally once a day 01/07/2022 Active Patient report taking herbal medical Not-Taking Social History Tobacco Use: Social History Observation Description Date Details (start date - stop date) Never Smoker NA - NA Sex Assigned At : Social History Observation Description Sex Assigned At Female Social History Social History Social Info Question Answer Notes Tobacco use: do you smoke: nonsmoker Section Notes: 3Immigrated to [place] from [place] on 12/01/2021 Problems Problem Type SNOMED Code ICD Code Onset Dates Problem Status W/U Status Risk Notes Problem Chronic idiopathic constipation (13481352) Chronic idiopathic constipation (K59.04) Active confirmed Encounters Encounter Location Date Provider Diagnosis [address] [id number] 08/29/2024 Niharika Fofana Chronic idiopathic constipation K59.04 and Age-related osteoporosis without current pathological fracture M81.0 Assessments Encounter Date Diagnosis (ICD Code) Assessment Notes Treatment Notes Treatment Clinical Notes Section Notes 08/29/2024 Chronic idiopathic constipation (ICD-10 - K59.04) 08/29/2024 Age-related osteoporosis without current pathological fracture (ICD-10 - M81.0) Plan Of Treatment Medication Medication Name Sig Start Date Stop Date Notes Dulcolax Laxative 10 mg suppository 1 SUPP(s) rectally every 2-3 days 08/29/2024 Colace sodium 100 mg capsule 1 cap(s) or ally 2 times a day 08/29/2024 Next Appt Details Provider Name:Niharika Fofana, 1 05/28/2024 01:45:00 PM, [address] [place] [address], [id number], History and Physical Notes * Examination Category Sub-Category Detail Notes Category Not es General Examination Ms Renae currently is 64 year old She sound well on phone Telehealth Virtual Visit Telehealth Patient Virtual Visit Patient Name, , and and ID Verified: Yes Provider Disclosed and Validated Identit y and Credentials: Yes Reviewed Relevant medical History With P atient: Yes Verified Ability To Deliver Appropriate Standard of Care: Yes Informed Patient of Any Relevant Privacy Considerations: Yes Followed Consent and Patient Information Protocols: Yes Location Verified: Yes Provider Location: [address] Patient Location: Home Informed Patient of Option t o See in-person Clinician as Needed or in-Case of Emergency: Yes Attestation Statement This is health visit performed via telephone, using Infini[employer], at [facility]. Audio-video option is available. Patient prefers audio-only or is unable to use audio-video. The patient was treated with the same standard of care as an in-person visit, and was informed of their right to see a clinician in person in the event of an emergency or if otherwise needed. I introduced and identified myself, received verbal consent from the patient to proceed with this telephone visit and made the patient aware that the same confidentiality and information technology analyst practices apply. Progress Notes * DORY RENAEDOB:1960 (64 yo F)Acc No.[id number]:08/29/2024 Telehealth Patient: DORY HERNANDEZ External /[id number]* Provider: Jose Fofana MD :1960 A ge:64 Y S ex:Female Date:08/29/2024 C #:[id number] Address:[address] [place], [place] [id number] Patient's Default Facility:[facility] Subjective: * Chief Complaints: * C PT [id number], 64 YO AF S/P CT ABD/[place]elvis @[place] 08/15/2024 * Medical History: 10/18/2021 CT and US found 13 mm x 5 mm appendix lesion s/p laparotomy by CRS (see surg hx) Hyperlipidemia H/O fatty liver Age-related osteoporosis Vitamin D deficiency 12/23/2021 Vitamin D 25 level 18* Menopause age 46 Fibroid 06/10/2022 [facility] 06/03/2022 MRI SACRUM/SI JOINTS W/W/O CONTRAST 09/05/22 Orthopedic [facility] 05/08/2022 T spot negative * Surgical History: [facility] 02/24/22 Appendix, ileum, right colon, ileocolectomy: Low-grade appendiceal mucinous neoplasm. [facility] colonoscopy 06/20/2022 * Hospitalization/Major Diagno stic Procedure: [facility] 02/24/22 open ileocolectomy Discharge Date: 02/26/22 * Family History: F ather: 78 yrs, stroke. M other: alive 88 yrs, old age, memory problem. S iblings: 1 older brother sezisai in [place] age 65. C hildren: alive 34 yrs, only 1 daughter Healthy. S pouse: alive 67 yrs, HTN. P aternal Grand Father: . P aternal Grand Mother: . M aternal Grand Father: . M aternal Grand Mother: . denies any breast, uterine, ovarian, colon ca, Deny family hx of ocular diseases. * Social History: T obacco use d o you smoke: n onsmoker. A lcohol: no . 3Immigrated to [place] from [place] on 12/01/2021. * Medications: T akingCitracal Maximum + D 315 mg-6.25 mcg tablet 1 tab orally 2 times a day Vitamin D3 25 mcg capsule 1 cap(s) orally once a day AmLODIPine Besylate 2.5 mg tablet 1 tab(s) orally once a day alendronate 70 mg tablet 1 tab(s) orally once a week Taking Citracal Maximum + D 315 mg-6.25 mcg tablet 1 tab orally 2 times a day Taking Vitamin D3 25 mcg capsule 1 cap(s) orally once a day Taking AmLODIPine Besylate 2.5 mg tablet 1 tab(s) orally once a day Taking alendronate 70 mg tablet 1 tab(s) orally once a week Not-TakingPatient report taking , Notes to Pharmacist: herbal medicalmeclizine 12.5 mg tablet 1 tab(s) orally 1 hour before car ride Calcium from diet 1200mg from food daily Not-Taking Patient report taking , Notes to Pharmacist: herbal medicalNot-Taking meclizine 12.5 mg tablet 1 tab(s) orally 1 hour before car ride Not-Taking Calcium from diet 1200mg from food daily * Allergies: N .K.D.A.yesAllergies Verified. Objective: * Examination: T elehealth Virtual Visit: [facility] Name, , and and ID Verified Cedrick Lozoya Disclosed and Validated Identity and Credentials Darion salas R eviewed Relevant medical History With Patient Y maritza, V erified Ability To Deliver Appropriate Standard of Care Y es, I nformed Patient of Any Relevant Privacy Considerations Y maritza, F ollowed Consent and Patient Information Protocols Y maritza, L ocation Verified Cedrick Lozoya Location [address], [facility] Location H [facility], I nformed Patient of Option to See in-person Clinician as Needed or in-Case of Emergency Darion salas. Attestation Statement T his is health visit performed via telephone, using Infini[employer], at [facility]. Audio-video option is available. Patient prefers audio- only or is unable to use audio-video. The patient was treated with the same standard of care as an in-person visit, and was informed of their right to see a clinician in person in the event of an emergency or if otherwise needed. I introduced and identified myself, received verbal consent from the patient to proceed with this telephone visit and made the patient aware that the same confidentiality and information technology analyst practices apply. . G eneral Examination: Jany Renae currently is 64 year old She sound well on phone. Assessment: * Assessment: 1. C hronic idiopathic constipation - K59.04 (Primary) 2 . A ge-related osteoporosis without current pathological fracture - M81.0 Plan: * Treatment: Billing Information: * Visit Code: 67873 Est Pat Brief VV. Modifiers: 95 * Electronic signature of Niharika Fofana MD on 03/15/2025 at 02:53 PM EST Sign off status: Pending * Provider: Jose Fofana MD Date: 0 08/29/2024 Generated for Bernarda rg/Zulma/Chloéitting on: 1 05/16/2024 02:53 PM EST
--- OUTSIDE RECORDS SUMMARY | 2024-11-28 04:30 | XMS_ITS ---
Author Organization [facility] Address [address], [place] [phone] Care Team Providers Care Manager City Name Role Phone Niharika Fofana Primary Care Provider Dr Reina Milton [facility] [phone] REASON FOR VISIT Reina Milton @ S Social History Sex Assigned At : Social History Observation Description Sex Assigned At Female Encounters Encounter Location Date Provider Diagnosis S [address] [phone] 11/28/2024 Reina Milton Plan Of Treatment Next Appt Details Provider Name:Niharika Fofana, 1 05/28/2024 01:45:00 PM, [address] [place] [address], [id number], Progress Notes * DORY LAGUNADOB:1960 (64 yo F)Acc No.[id number]:11/28/2024 Progress Notes Patient: PAM HERNANDEZJW External /[id number]* Provider: Gt Milton MD :1960 A ge:64 Y S ex:Female Date:11/28/2024 C HN#:[id number] Address:[address] [place] [address] AP [address] [facility] Pcp:Niharika Fofana Patient's Default Facility:[facility] Subjective: * Chief Complaints: * Reina Olivia @ S * Electronic signature of Dr Gt Milton MD on 03/15/2025 at 02:53 PM EST Sign off status: Pending * Provider: Gt Milton MD Date: 0 11/28/2024 Generated for Bernarda rg/Zulma/Adriane on: 1 05/16/2024 02:53 PM EST
--- OUTSIDE RECORDS SUMMARY | 2024-11-28 06:00 | XMS_ITS ---
Author Organization [facility] Address [address], [place] [id number] Care Team Providers Care Repair Table Operator Name Role Phone Niharika Fofana Primary Care Provider Kathy Friedman [phone] REASON FOR VISIT 12m Social History Sex Assigned At : Social History Observation Description Sex Assigned At Female Encounters Encounter Location Date Provider Diagnosis S [address] [phone] Kathy Friedman Plan Of Treatment Next Appt Details Provider Name:Niharika Fofana, 1 05/28/2024 01:45:00 PM, [address] [place] [address], [id number], Progress Notes * DORY LAGUNADOB:1960 (64 yo F)Acc No.[id number]:11/28/2024 Progress Notes Patient: DORY HERNANDEZ External /[id number]* Provider: Lia Friedman NP :1960 A ge:64 Y S ex:Female Date:11/28/2024 External Visit ID:[id number] C HN#:[id number] Address:[address] [place] [address] [address], [place] Pcp:Niharika Fofana Patient's Default Facility:[facility] Subjective: * Chief Complaints: * 1 2m Plan: * Preventive Medicine: Well Visit: P reventive Screenings L ast Done Colonoscopy: 06/20/2022, L ast Done Colonoscopy 0 06/20/2022. Billing Information: * Procedure Codes: * Electronic signature of Nikky Friedman NP on 03/15/2025 at 02:53 PM EST Sign off status: Pending * Provider: Lia Friedman NP Date: 0 11/28/2024 Generated for Bernarda rg/Zulma/Chloéitting on: 1 05/16/2024 02:53 PM EST
--- OUTSIDE RECORDS SUMMARY | 2025-01-31 08:45 | XMS_ITS ---
Author Organization [facility] Address [address], [place] [phone] Care Team Providers Care Customer Success Specialist Name Role Phone Niharika Fofana Primary Care Provider REASON FOR VISIT f/u bone density@[facility] 01/19/25 Social History Sex Assigned At : Social History Observation Description Sex Assigned At Female Encounters Encounter Location Date Provider Diagnosis [address] [phone] 01/31/2025 Niharika Fofana Plan Of Treatment Next Appt Details Provider Name:Niharika Fofana, 1 05/28/2024 01:45:00 PM, [address] [place] [address], [id number], Progress Notes * DORY LAGUNADOB:1960 (64 yo F)Acc No.[id number]:01/31/2025 Progress Note Patient: Fany MORTON DORY External /[id number]* Provider: Jose Fofana MD :1960 A ge:64 Y S ex:Female Date:01/31/2025 C HN#:[id number] Address:[address] [place] [address] [address] Patient's Default Facility:[facility] Subjective: * Chief Complaints: * f /u bone density@[facility] 01/19/25 * Electronic signature of Niharika Fofana MD on 03/15/2025 at 02:53 PM EST Sign off status: Pending * Provider: Jose Fofana MD Date: 1 Generated for Bernarda rg/Zulma/Adriane on: 1 05/16/2024 02:53 PM EST
--- OUTSIDE RECORDS SUMMARY | 2025-02-10 10:15 | XMS_ITS ---
Author Organization [facility] Address [address] [place] [id number] Care Team Providers Care Jewel Blocker And Sawyer Name Role Phone Niharika Fofana Primary Care Provider REASON FOR VISIT refill pls call [phone] Social History Sex Assigned At : Social History Observation Description Sex Assigned At Female Encounters Encounter Location Date Provider Diagnosis [address] [id number] 02/10/2025 Niharika Fofana Plan Of Treatment Next Appt Details Provider Name:Niharika Fofana, 1 05/28/2024 01:45:00 PM, [address] [place] [address], [id number], Progress Notes * DORY LAGUNADOB:1960 (64 yo F)Acc No.[id number]:02/10/2025 Telehealth Patient: Fany MORTON DORY External /[id number]* Provider: Jose Fofana MD :1960 A ge:64 Y S ex:Female Date:02/10/2025 C HN#:[id number] Address:[address] [place] [address] T [address] Patient's Default Facility:[facility] Subjective: * Chief Complaints: * R efill pls call [phone] Billing Information: * Procedure Codes: * Electronic signature of Niharika Fofana MD on 03/15/2025 at 02:53 PM EST Sign off status: Pending * Provider: Jose Fofana MD Date: 1 Generated for Bernarda rg/Zulma/Adriane on: 1 05/16/2024 02:53 PM EST
--- OUTSIDE RECORDS SUMMARY | 2025-02-11 04:15 | XMS_ITS ---
Author Organization [facility] Address [address] [place], [place] [phone] Care Team Providers Care Director Account Management Name Role Phone Niharika Fofana Primary Care Provider Allergies No Known Allergies Medications Medication SIG (Take, Route, Frequency, Duration) Notes Start Date End Date Status alendronate 70 mg tablet 1 tab(s) orally once a week 11/20/2022 Active Calcium from diet 1200mg from food daily 01/07/2022 Not-Taking Vitamin D3 25 mcg capsule 1 cap(s) orally once a day 01/07/2022 Active AmLODIPine Besylate 2.5 mg tablet 1 tab(s) orally once a day 05/08/2022 Active Citracal Maximum + D 315 mg-6.25 mcg tablet 1 tab orally 2 times a day Self bought 11/20/2022 Active Social History Sex Assigned At : Social History Observation Description Sex Assigned At Female Encounters Encounter Location Date Provider Diagnosis W [address] [phone] 02/11/2025 Niharika Fofana Plan Of Treatment Next Appt Details Provider Name:Niharika Fofana, 1 05/28/2024 01:45:00 PM, [address] [place] [address], [phone], Progress Notes * DORY LAGUNADOB:1960 (64 yo F)Acc No.[id number]:02/11/2025 Telehealth Patient: DORY HERNANDEZ External /[id number]* Provider: Jose Fofana MD :1960 A ge:64 Y S ex:Female Date:02/11/2025 C JETHRO#:[id number] Address:[address] [place] [address] T [address] Patient's Default Facility:[facility] Subjective: * Chief Complaints: * Medical History: 10/18/2021 CT and US found 13 mm x 5 mm appendix lesion s/p laparotomy by CRS (see surg hx) Hyperlipidemia H/O fatty liver Age-related osteoporosis Vitamin D deficiency 12/23/2021 Vitamin D 25 level 18* Menopause age 46 Fibroid 06/10/2022 [facility] 06/03/2022 MRI SACRUM/SI JOINTS W/W/O CONTRAST 09/05/22 Orthopedic [facility] 05/08/2022 T spot negative * Medications: T akingCitracal Maximum + D 315 mg-6.25 mcg tablet 1 tab orally 2 times a day , Notes to Pharmacist: Self boughtVitamin D3 25 mcg capsule 1 cap(s) orally once a day AmLODIPine Besylate 2.5 mg tablet 1 tab(s) orally once a day alendronate 70 mg tablet 1 tab(s) orally once a week Taking Citracal Maximum + D 315 mg-6.25 mcg tablet 1 tab orally 2 times a day , Notes to Pharmacist: Self boughtTaking Vitamin D3 25 mcg capsule 1 cap(s) orally once a day Taking AmLODIPine Besylate 2.5 mg tablet 1 tab(s) orally once a day Taking alendronate 70 mg tablet 1 tab(s) orally once a week Not-TakingCalcium from diet 1200mg from food daily Medication List reviewed and reconciled with the patientNot-Taking Calcium from diet 1200mg from food daily Medication List reviewed and reconciled with the patient * Allergies: N .K.D.A.yesAllergies Verified. * Electronic signature of Niharika Fofana MD on 03/15/2025 at 02:53 PM EST Sign off status: Pending * Provider: Jose Fofana MD Date: 04/13/2024 Generated for Bernarda rg/Zulma/Jacindasmitting on: 05/16/2024 02:53 PM EST
--- OUTSIDE RECORDS SUMMARY | 2025-02-11 05:25 | XMS_ITS ---
Author Organization [facility] Address [address], [place] [id number] Care Team Providers Care Product Transfer Pumper Name Role Phone Brigido Niharika Irene Primary Care Provider Reason For Referral Reason Osteoporosis Alend ronate use for 2 years Diagnosis 1 Age-related osteopor osis without current pathological fracture (M81.0) Referral Organization [facility] Referring Provider First Name Niharika Irene Referring Provider Last Name Brigido Referring Provider Speciality Internal M edicine Referred Provider Specialty Endocrinolog y General Notes Niharika Fofana 10:29:33 AM > [email or web address] [address] [place] [address], Toll Free: [phone], Niharika Fofana 02/11/2025 10:30:41 AM > Clinical Notes Nai Starks 11:13:27 AM > Called executive legal secretary informed that patient have to be done BD first, BD appt has been rescheduled on 03/2025 at [facility]., Nai Starks 02/14/2025 01:31:48 PM > spoke with patient regarding that also let her call us back after done the BD, otherwise can't scheduled. Referral Priority Urgent REASON FOR VISIT Endocrine referral Social History Sex Assigned At : Social History Observation Description Sex Assigned At Female Encounters Encounter Location Date Provider Diagnosis [facility] [address], [place] [id number] 02/11/2025 Niharika Fofana Age-related osteoporosis without current pathological fracture M81.0 Assessments Encounter Date Diagnosis (ICD Code) Assessment Notes Treatment Notes Treatment Clinical Notes Section Notes 02/11/2025 Age-related osteoporosis without current pathological fracture (ICD-10 - M81.0) [facility] BMD 11/11/2022 T-score [place] Z-score AM Classification PA Spine / L1-L4 11/11/22 0.644 -3.7 62 -2.0 75 Osteoporosis Left Hip / Total 11/11/22 0.683 -2.1 73 -0.9 86 Osteopenia Left Hip / Femoral Neck 11/11/22 0.594 -2.3 70 -0.8 87 Osteopenia Plan Of Treatment Referrals Referral Date Details 02/11/2025 02/11/2025, Osteopor osis Alendronate use for 2 years Next Appt Details Provider Name:Niharika Fofana, 1 05/28/2024 01:45:00 PM, [address] [place] [address], [phone], Consultation Request Notes Referral Date Referring Provider Referred Provider Not es 02/11/2025 Niharika Fofana , Osteoporosis Alendronate use for 2 years Progress Notes * DORY LAGUNADOB:1960 (64 yo F)Acc No.[id number]:02/11/2025 Patient: DORY HERNANDEZ :1960 A ge:64 Y S ex:Female Address:[address] [place] [address], [address] Subjective: * Chief Complaints: * E ndocrine referral Assessment: * Assessment: 1. A ge-related osteoporosis without current pathological fracture - M81.0 (Primary) N otes :[facility] BMD 11/11/2022T-score [place] Z-score AM ClassificationPA Spine / L1-L4 11/11/22 0.644 -3.7 62 -2.0 75 OsteoporosisLeft Hip / Total 11/11/22 0.683 -2.1 73 -0.9 86 OsteopeniaLeft Hip / Femoral Neck 11/11/22 0.594 -2.3 70 -0.8 87 Osteopenia Plan: * Treatment: * * Date:
--- OUTSIDE RECORDS SUMMARY | 2025-02-14 05:45 | XMS_ITS ---
Author Organization [facility] Address [address], [place] [id number] Care Team Providers Care Work Order Clerk Name Role Phone Niharika Fofana Primary Care Provider REASON FOR VISIT f/u bone density@BI 01/31/2025 Social History Sex Assigned At : Social History Observation Description Sex Assigned At Female Encounters Encounter Location Date Provider Diagnosis [address] [phone] 02/14/2025 Niharika Fofana Plan Of Treatment Next Appt Details Provider Name:Niharika Fofana, 1 05/28/2024 01:45:00 PM, [address] [place] [address], [phone], Progress Notes * DORY LAGUNADOB:1960 (64 yo F)Acc No.[id number]:02/14/2025 Progress Note Patient: PAM HERNANDEZJW External /[id number]* Provider: Jose Fofana MD :1960 A ge:64 Y S ex:Female Date:02/14/2025 C HN#:[id number] Address:[address] [place] [address] [address], [place], [place] Patient's Default Facility:[facility] Subjective: * Chief Complaints: * f /u bone density@BI 01/31/2025 * Electronic signature of Niharika Fofana MD on 03/15/2025 at 02:52 PM EST Sign off status: Pending * Provider: Jose Fofana MD Date: 04/16/2024 Generated for Bernarda rg/Zulma/Adriane on: 05/16/2024 02:52 PM EST
--- NOTE | ~2025-03-15 | MM_ITS ---
EXAMINATION: DXA BONE DENSITY AXIAL HISTORY: OSTEOPOROSIS TECHNIQUE: [employer] Dual energy absorptiometry (DEXA) of the lumbar spine, total left hip, and femoral neck was performed. COMPARISON: There are no prior studies for comparison. FINDINGS: The bone mineral density of the lumbar spine is 0.824 g/cm2, corresponding to a T-score of -3.0, and a Z-score of -0.9. This is indicative of osteoporosis. The bone mineral density of the left total hip is 0.813 g/cm2, corresponding to a T-score of -1.5, and a Z-score of 0.1. This is indicative of osteopenia. The bone mineral density of the left femoral neck is 0.801 g/cm2, corresponding to a T-score of -1.7, and a Z-score of 0.1. This is indicative of osteopenia. FRACTURE RISK: The FRAX index suggests a risk of major osteoporotic fracture of 4.9%, and of hip fracture 0.7%. MM/XR DEXA axial skeleton IMPRESSION: Based on bone mineral density, and according to World Health Organization (WHO) criteria, the diagnosis is consistent with osteoporosis. Statistically, 68% of repeat scans fall within 1 SD (+/- 0.010 g/cm2 for AP spine L1-L4) and 1 SD (+/- 0.012 g/cm2 for femur total) FRAX is a trademark of the [employer] [place] [facility] [employer], a World Health Organization (WHO) Collaborating Center. Electronically signed by: Demetrius Haro MD 03/15/2025 01:26 PM [facility] [place]
--- OUTSIDE RECORDS SUMMARY | 2025-03-15 14:53 | XMS_ITS | Patient Health Record ---
Author Organization [facility] Address [address] [place] [id number] Care Team Providers Care Nc Machinist Name Role Phone Niharika Fofana Primary Care Provider Kathy Friedman Unavailable [phone] Dr Reina Milton Unavailable [phone] Maria Elena Keys Unavailable [phone] Allergies No Known Allergies Results Component Value Reference Range Flag Notes URINALYSIS, COMPLETE w/MICRO SCOPIC - URed2 Reviewed date:06/04/2024 02:36:59 PM Interpretation: Performing Lab: Notes/Report: HEMOGLOBIN A1C Reviewed date:06/04/2024 02:36:59 PM Interpretation: Performing Lab: Notes/Report: [facility] [address] [facility] [place] [address] Ordering Provider: VAN FOFANA Copied To: , HEMOGLOBIN A1C 5.7 4.8-5.9 % A1C betwee n 5.7-6.4 if confirmed is considered prediabetes, and A1C >= 6.5 if confirmed is considered diabetes, according to the ADA. A1C treatment goals should be individualized. ESTIMATED AVERAGE GLUCOSE Estimated averag e glucose is calculated from A1C using ADAG equation. ESTIMATED AVERAGE GLUCOSE (INSTR. CALC) 117 68-126 mg/dL Lab Direct or: AVELINO DUGAN Note See Below For Report LIPID PANEL Reviewed date:06/04/2024 02:36:59 PM Interpretation:. Performing Lab: Notes/Report: [facility] [address] [facility] [place] [address] Ordering Provider: VAN FOFANA Copied To: , CHOLESTEROL 265 0-199 mg/dL H TRIGLYCERIDES 176 0-149 mg/dL H HDL CHOLESTEROL 64 41-999 mg/dL LDL CHOLESTEROL 166 0-129 mg/dL H NON-HDL CHOLESTEROL 201 <190 mg/dL H RATIO CHOL/HDL 4.1 2.0-5.0 Lab Direct or: AVELINO DUGAN Note See Below For Report COMPREHENSIVE METABOLIC PANE L Reviewed date:06/04/2024 02:36:59 PM Interpretation:see [facility] Performing Lab: Notes/Report: [facility] [address] [place] [address] Ordering Provider: VAN FOFANA Copied To: , SODIUM 145 135-147 mmol/L POTASSIUM 3.7 3.5-5.4 mmol/L CHLORIDE 103 96-108 mmol/L TOTAL CO2 25 22-32 mmol/L ANION GAP (CALC) 17 10-18 mmol/L BUN 12 6-20 mg/dL CREATININE 0.60 0.40-1.10 mg/dL GLUCOSE 93 70-100 mg/dL CALCIUM 9.2 8.4-10.3 mg/dL TOTAL PROTEIN 7.7 6.4-8.3 g/dL ALBUMIN, BLOOD 4.7 3.5-5.2 g/dL GLOBULIN 3.0 2.0-4.0 g/dL AST (SGOT) 60 0-40 U/L H ALT (SGPT) 93 0-40 U/L H ALK PHOSPHATASE 81 35-105 U/L TOTAL BILIRUBIN 0.7 0.0-1.5 mg/dL ESTIMATED GFR (CKD-EPI) 100 Basting Marker: DANIEL DUGAN Note See Below For Report VITAMIN D,25OH Reviewed date:06/04/2024 02:36:59 PM Interpretation: Performing Lab: Notes/Report: [facility] [address] [place] [address] Ordering Provider: VAN FOFANA Copied To: , VITAMIN D, 25-OH 44 30-60 ng/mL Lab Dir irma: AVELINO DUGAN Note See Below For Report TSH Reviewed date:06/04/2024 02:36:59 PM Interpretation: Performing Lab: Notes/Report: [facility] [address] [place] [address] Ordering Provider: VAN FOFANA Copied To: , TSH 0.98 0.27-4.20 uIU/mL Lab Dire ctor: AVELINO DUGAN Note See Below For Report CBC Reviewed date:06/04/2024 02:36:59 PM Interpretation:see [facility] Performing Lab: Notes/Report: [facility] [address] [place] [address] Ordering Provider: VAN FOFANA Copied To: , WBC 13.82 4.00-10.00 K/uL H RBC 4.75 3.90-5.20 M/uL HEMOGLOBIN 14.9 11.2-15.7 g/dL HEMATOCRIT 42.8 34.0-45.0 % MCV 90 82-98 fL MCH 31.4 26.0-32.0 pg MCHC 34.8 32.0-37.0 g/dL RDW 11.8 10.5-15.5 % RDW-SD 38.7 35.1-46.3 fL PLATELET COUNT 257 150-400 K/uL NUCLEATED RBC 0 <=0 #/100 WBC Lab Dire ctor: AVELINO DUGAN Note See Below For Report RAINBOW TUBE REQ Reviewed date:06/04/2024 02:36:59 PM Interpretation: Performing Lab: Notes/Report: [facility] [address] [place] [address] Ordering Provider: VAN FOFANA Copied To: , EXTRA TUBE Received Basting Marker: AVELINO DUGAN Note See Below For Report URINALYSIS WITH SEDIMENT Reviewed date:06/04/2024 02:36:59 PM Interpretation:. Performing Lab: Notes/Report: [facility] [address] [place] [address] Ordering Provider: VAN FOFANA Copied To: , COLOR, URINE Yellow Yellow, Colorles s, Straw CLARITY, URINE Cloudy Clear Abnormal PH, URINE 6.0 5.0-8.0 PROTEIN UR 30 mg/dL Negative Abnormal GLUCOSE UR 500 mg/dL Negative Abnormal KETONE, UR Negative Negative BILIRUBIN UR Negative Negative UROBILINOGEN UR Normal 0.2-1.0 mg/dL BLOOD UR Negative Negative LEUKOCYTE UR Negative Negative NITRITE UR Negative Negative SPECIFIC GRAVITY UR 1.022 1.001-1.050 WBC, UR (NUMERIC) 0 0-5 /hpf RBC, UR (NUMERIC) 0 0-2 /hpf Lab Dir irma: AVELINO DUGAN Note See Below For Report CALCIUM Reviewed date:06/04/2024 02:36:43 PM Interpretation: Performing Lab: Notes/Report: [facility] [address] [place] [id number] Ordering Provider: VAN FOFANA Copied To: , CALCIUM 9.2 8.4-10.3 mg/dL Lab Direct or: AVELINO DUGAN Note See Below For Report ALBUMIN Reviewed date:06/04/2024 02:36:59 PM Interpretation: Performing Lab: Notes/Report: [facility] [address] 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 Phone#: [phone]., Steph Rg 06/02/2024 02:44:03 PM >Per [facility], they would need to receive patient's records before schduling any appts. Once they receive the records, they will call patient directly to schedule this appt. Patient and her daughter will aware of the call from [facility]. Also provide the phone # to them in case they miss the calls. Referral Priority Urgent Reason Osteoporosis Alend ronate use for 2 years Diagnosis 1 Age-related osteopor osis without current pathological fracture (M81.0) Referral Organization [facility] Referring Provider First Name Niharika Irene Referring Provider Last Name Brigido Referring Provider Speciality Internal M edicine Referred Provider Specialty Endocrinolog y General Notes Niharika Fofana 10:29:33 AM > [email or web address] [address] [place] [address], [place] [address], Toll Free: [phone], Niharika Fofana 02/11/2025 10:30:41 AM > Clinical Notes Nai Starks 11:13:27 AM > Called certified legal secretary specialist informed that patient have to be done BD first, BD appt has been rescheduled on 03/2025 at [facility]., RaudelNai 02/14/2025 01:31:48 PM > spoke with patient regarding that also let her call us back after done the BD, otherwise can't scheduled. Referral Priority Urgent Medications Medication SIG (Take, Route, Frequency, Duration) Notes Start Date End Date Status Calcium from diet 1200mg from food daily 01/07/2022 Not-Taking AmLODIPine Besylate 2.5 mg tablet 1 tab(s) orally once a day 05/08/2022 Active alendronate 70 mg tablet 1 tab(s) orally once a week 11/20/2022 Active Vitamin D3 25 mcg capsule 1 cap(s) orally once a day 01/07/2022 Active Citracal Maximum + D 315 mg-6.25 mcg tablet 1 tab orally 2 times a day Self bought 11/20/2022 Active Immunizations Vaccine Route Administration Date Status Comme nts AREXVY RSV Unknown 03/22/2023 Administered Covid19 Moderna Booster Unknown 12/05/2021 Administered Covid19 Mrdn BIV 18+ (12+) Unknown 02/15/2022 Administe red Flucelvax Quad (Prsv Free) -P IM Intramuscular 12/23/2021 Administered Fluzone High-Dose, IIV3, pf Unknown 01/23/2024 Administered Hep A Unknown 12/23/2021 Administered Hep B Adult Unknown 12/23/2021 Administered Influenza (Not from [facility]) Unknown 03/05/2025 Administe red MMR Unknown 07/18/2021 Administered PCV20 (Wextakc30) -P Unknown 02/15/2022 Administered PPD placed Unknown 05/08/2022 Administered Shingrix(NOT [facility]) Unknown 04/20/2022 Administered Shingrix(NOT [facility]) Unknown 09/05/2022 Administered Sinovac Unknown 10/21/2020 Administered Sinovac Unknown [...] use: do you smoke: nonsmoker Section Notes: [place] 12/01/2021 [place]/01/20[place] 12/01/20[place] 12/01/2021 3[place]/01/20[place] 12/01/[place] 12/01/2021 3[place]/01/2021 3[place] 12/01/2021 3[place] 12/01/2021 3[place] 12[place]01/2021 3[place] 12/01/2021 3[place] 12/01/20[place] 12/01/2021 3[place] 12/01/2021 3[place] 12/01/2021 3[place]/01/20[place] 3[place]/01/20[place] 3[place] 12/01/20[place] Problems Problem Type SNOMED Code ICD Code Onset Dates Problem Status W/U Status Risk Notes Problem Helicobacter pylori (95355660) Helicobacter pylori [H. 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) Active confirmed Problem Leukocytosis (966893949) Elevated white blood cell count, unspecified (D72.829) Active confirmed Problem Vitamin D deficiency (36059911) Vitamin D deficiency, unspecified (E55.9) Active confirmed Problem Hyperlipidemia (41736888) Hyperlipidemia , unspecified (E78.5) Active confirmed Problem Bilateral age-related cataract (5165783453022270 3) Combined forms of age-related cataract, bilateral (H25.813) Active confirmed Problem Presbyopia (98077386) Presbyopia (H52.4) Active confirmed Problem Essential hypertension (38272756) Essential (primary) hypertension (I10) Active confirmed Problem Atrophic Gastritis (Disorder) (05498731) 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683 -2.1 73 -0.9 86 Osteopenia Left Hip / Femoral Neck 11/11/22 0.594 -2.3 70 -0.8 87 Osteopenia Problem Disorder of bone (30058536) Disorder of bone, unspecified (M89.9) Active confirmed Problem Menopause (463738920) Menopausal and female climacteric states (N95.1) Active confirmed Problem Elevated blood pressure reading without diagnosis of hypertension (969614197) Elevated blood-pressure reading, without diagnosis of hypertension (R03.0) Active confirmed Problem Right lower quadrant pain (840034959) Right lower quadrant pain (R10.31) Active confirmed Problem Frequency of micturition (374191668) Frequency of micturition (R35.0) Active confirmed Problem Solitary pulmonary nodule (438821925) Solitary pulmonary nodule (R91.1) Active confirmed Problem Motion sickness (38801738) Motion sickness, initial encounter (T75.3XXA) Active confirmed Problem Tuberculosis screening (032756126) Encounter for screening for respiratory tuberculosis (Z11.1) Active confirmed Problem Vaccination given (058318920) Encounter for immunization (Z23) Active confirmed Problem Repeated prescription (333795780) Encounter for issue of repeat prescription (Z76.0) Active confirmed Problem Chronic idiopathic constipation (23914732) Chronic idiopathic constipation (K59.04) Active confirmed Problem Elevation of levels of [...] Encounters Encounter Location Date Provider Diagnosis W [address] [id number] 06/01/2024 Niharika Fofana Encounter for genera l [...] and Right lower quadrant pain R10.[address] [id number] 06/02/2024 Niharika Fofana Right lower quadrant pain R10.31 ; Elevation of levels of liver transaminase levels R74.01 ; Elevated white blood cell count, unspecified D72.829 and Hyperlipidemia, unspecified E78.[address] [id number] 05/02/2024 Niharika Fofana [address] [id number] 06/01/2024 Niharika Fofana [address] [id number] 06/01/2024 Niharika Fofana [address] [id number] 06/01/2024 Niharika Fofana [address] [id number] 06/01/2024 Niharika Fofana [address] [id number] 06/01/2024 Niharika Fofana [address] [id number] 06/02/2024 Niharika Fofana [address] [id number] 06/02/2024 Niharika Fofana [address] [id number] 08/29/2024 Niharika Fofana Chronic idiopathic constipation K59.04 and Age-related osteoporosis without current pathological fracture M81.[address] [id number] 06/27/2024 Niharika Fofana Neoplasm of uncertai n behavior of appendix D37.[address] [id number] 07/04/2024 Niharika Fofana [address] [id number] 08/15/2024 Niharika Fofana [address] [id number] 08/29/2024 Niharika Fofana [address] [id number] 08/29/2024 Niharika Fofana [address] [id number] 08/29/2024 Niharika Fofana [address] [id number] 02/02/2025 Maria Elnea Keys Essential (primary) hypertension I10 [address] [id number] 02/08/2025 Maria Elena Keys Age-related osteoporosis without current pathological fracture M81.[address] [id number] 02/11/2025 Niharika Fofana [address] [id number] 02/11/2025 Niharika Fofana Vitamin D deficiency , unspecified E55.[address] [id number] 02/11/2025 Niharika Fofana Age-related osteoporosis without current pathological fracture M81.[address] [id number] 02/11/2025 Niharika Fofana [address] [id number] 02/17/2025 Niharika Fofana Age-related osteoporosis without current pathological fracture M81.0 Assessments Encounter Date Diagnosis (ICD Code) Assessment Notes Treatment Notes Treatment Clinical Notes Section Notes 06/01/2024 Encounter for general adult medical examination with abnormal findings (ICD-10 - Z00.01) 06/02/2024 Right lower quadrant pain (ICD-10 - R10.31) elevated WBC in the setting after car ride with motion sickness and vomiting per Ms Renae , she has no abdomen pain today or urine discomfort Await CT appointment 06/27/2024 Neoplasm of uncertain behavior of appendix (ICD-10 - D37.3) 08/29/2024 Age-related osteoporosis without current pathological fracture (ICD-10 - M81.0) 08/29/2024 Chronic idiopathic constipation (ICD-10 - K59.04) 02/02/2025 Essential (primary) hypertension (ICD-10 - I10) 02/08/2025 Age-related osteoporosis without current pathological fracture (ICD-10 - M81.0) 02/11/2025 Vitamin D deficiency, unspecified (ICD-10 - E55.9) 02/11/2025 Age-related osteoporosis without current pathological fracture (ICD-10 - M81.0) [facility] BMD 11/11/2022 T-score [place] Z-score AM Classification PA Spine / L1-L4 11/11/22 0.644 -3.7 62 -2.0 75 Osteoporosis Left Hip / Total 11/11/22 0.683 -2.1 73 -0.9 86 Osteopenia Left Hip / Femoral Neck 11/11/22 0.594 -2.3 70 -0.8 87 Osteopenia 02/17/2025 Age-related osteoporosis without current pathological fracture (ICD-10 - M81.0) 06/02/2024 Elevation of levels of liver transaminase levels (ICD-10 - R74.01) no alcohol or herbal medication Await GI appointment -- 06/01/2024 AST (SGOT)60 H0-40 (U/L) ALT (SGPT)93 H 06/01/2024 Dietary counseling and surveillance (ICD-10 - Z71.3) Healthy lifestyle discussed; 06/01/2024 Neoplasm of uncertain behavior of appendix (ICD-10 - D37.3) [facility] 02/24/22 Appendix, ileum, right colon, ileocolectomy: Low-grade appendiceal mucinous neoplasm.[facility] 12/05/2022 CT 1. No evidence of metastatic [...] 06/02/2024 Hyperlipidemia, unspecified (ICD-10 - E78.5) 06/01/2024 [id number] H0-199 (mg/dL) [id number] H0-149 (mg/dL) HDL NVECEDKOGNT0578- 999 (mg/dL) LDL [id number] H0-129 (mg/dL) NON-HDL [id number] H<190 (mg/dL) RATIO CHOL/HDL4.12.0-5 .0 -- Decrease fat in diet Will hold off lipid treatment till after GI evaluation 06/01/2024 Age-related osteoporosis without current pathological fracture (ICD-10 - M81.0) [facility] BMD 11/11/2022 T-score [place] Z-score AM Classification PA Spine / L1-L4 11/11/22 0.644 -3.7 62 -2.0 75 Osteoporosis Left Hip / Total 11/11/22 0.683 -2.1 73 -0.9 86 Osteopenia Left Hip / Femoral Neck 08/01/23 0.594 -2.3 70 -0.8 87 Osteopenia 06/01/2024 Hyperlipidemia, unspecified (ICD-10 - E78.5) 06/01/2024 Vitamin D deficiency, unspecified (ICD-10 - E55.9) 06/01/2024 Essential (primary) hypertension (ICD-10 - I10) [...] BUN 06/27/2024 Next Appt Details Provider Name:Niharika Maria Victoria Brigido, 1 05/28/2024 01:45:00 PM, [facility], [place], [place], [phone], Insurance Providers Payer Name Payer Address Payer Phone Subscriber Number Group Number Insured Name Patient Relationship to Insured Coverage Start Date Coverage End Date [facility] [employer] [address] [place] [address] [phone] [id number] DORY RENAE Self - patient is the insured [facility] [address] [place] [address] [id number] DORY RENAE Self - patient is the insured 3 Medical (General) History Medical History History ICD Code 10/18/2021 CT and US found 13 mm x 5 mm appendix lesion --> s/p laparotomy by CRS (see surg hx) Hyperlipidemia H/O fatty liver Age-related osteoporosis Vitamin D deficiency 12/23/2021 Vitamin D 25 level 18* Menopause age 46 Fibroid 06/10/2022 [facility] 06/03/2022 M RI SACRUM/SI JOINTS W/W/O CONTRAST 09/05/22 Orthopedic [facility] 05/08/2022 T spot negative Surgical History Surgery Date(Month/Year) [facility] 02/24/22 Appendix, ile um, right colon, ileocolectomy: Low-grade appendiceal mucinous neoplasm. [facility] colonoscopy 06/20/2022 Hospitalization History Reason Date(Month/Year) [facility] 02/24/22 open ileocolectomy Discha rge Date: 02/26/22
== END 2025-03-15 12:39 | disposition home or self-care (01) ==
LOC: HO.MAMMO 12:38
PROVIDERS: Visit Provider Internal Medicine Geriatric Medicine
DX: M81.0 Age-related osteoporosis without current pathological fracture (principal)
CPT/HCPCS: 77080

== ENCOUNTER → 2025-03-15 13:00 | Outpatient (BNV) | payer MEDICAID, SELFPAY | PROVIDERS: Visit Provider Radiology Diagnostic Radiology | DX: E28.39 Other primary ovarian failure (principal) | CPT/HCPCS: 77080 ==